=== PATIENT | male | born 1960 | race Caucasian/White ===

== ENCOUNTER → 2018-03-31 | Outpatient (CLI) | payer OTHER ==
[~2018-03-31] VITALS: Ht 182.9 cm; Wt 121.6 kg
[~2018-03-31] MED LIST: ALEVE220 MG PO; HYDROCODON-ACE1 EAC5 PO; LISINOPRIL-HCT1 EACH PO; NEURONTIN600 MG PO; NEXIUM40 MG PO; OXYCONTIN40 MG PO; XARELTO20 MG PO
--- NOTE | ~2018-03-31 | HPC ---
[facility] [address] [place] [address] PAIN MANAGEMENT CONSULTATION Name: CLIFTONANNA Moran Room #: REG [facility] M..#: [id number] Admission: 03/31/18 Attend Phys: Tyson Posada DO Discharge: Date of : 56 Report #: [id number] THIS REPORT FOR: //name// CC: [facility] physician/PCP [facility] Tyson Posada DATE OF SERVICE: 03/31/2018 HISTORY OF PRESENT ILLNESS: The patient is a 57-year-old gentleman seen in consultation at the request of the MA for evaluation of chronic pain concerns and consideration for treatment of same. The patient presents to the pain clinic today noting "whole body" pain, rating anywhere from 8-10 on a VAS. States specifically he has knee pain, axial back pain and peripheral neuropathic pain in his arms and legs. Describes burning and/or paresthesia in the upper and lower extremities. Notes pain in his knees, is rate limiting. He had total knee arthroplasties, right 2011, left 2012, with ongoing pain that continues to be problematic. He states he uses a cane to help with balance. He has followed up with his orthopedic surgeon at [facility], they do not feel he requires any revision of the total knee arthroplasties. The patient had prior back surgery, L5-S1 decompressive laminectomy and bipedicle fusion around 2006. He notes he had back and radicular pain that was significantly improved by that surgery. He had been habituated to high dose opiates, taking equivalent of 260 mg of morphine daily (OxyContin 40 mg t.i.d. and hydrocodone 10/325 eight a day). To the patient's credit, he has weaned off all the OxyContin over time and has decreased from 8 to 4 hydrocodone 10/325 a day. He notes he had a lot of cognitive dysfunction and feels that his head was significantly clear following weaning of these agents, but pain continues to be problematic. He also weaned off gabapentin 600 mg t.i.d. He did all of these weans slowly. Currently, he notes the pain is exacerbated any time he is up. Describes continuous crushing pain, again rates it anywhere from 8-10 on a VAS. He denies myelopathic symptoms. Again, primary pain is in the knees. REVIEW OF SYSTEMS: Complete review of systems was attached to chart and has gone over with the patient. He is . Smokes 1 pack of cigarettes a day, which he has for greater than 46 years. Denies any alcohol consumption Hypertension treated with lisinopril and hydrochlorothiazide. History of pulmonary embolism, was taken to [facility] in 2014, has been on Xarelto since. He has had significant gastroesophageal reflux, developed [facility] [address] [place] [address] PAIN MANAGEMENT CONSULTATION Name: ANNA LAZO Room #: REG CL Tali#: [id number] Admission: 03/31/18 Attend Phys: Tyson Posada DO Discharge: Date of : 56 Report #: [id number] [place] esophagitis and subsequent esophageal cancer. The latter was treated with sequential radiofrequency lesioning of the esophagus. Per the patient, the esophageal cancer is currently in remission. At [facility] [place], he was diagnosed with a genetic hypercoagulability disorder. There are no records of same. States he has gotten off his Xarelto for procedures in the past with no problems. Surgery was reviewed. Notes the prior back surgery in 2006, bilateral knee arthroplasties, 2011, 2012. Remaining review of systems is noncontributory. The patient worked as a welding machine operator [employer], ultimately retired in 2012. He is on SSD payments. Pain impact score is fairly high, averaging 65/70. PHYSICAL EXAMINATION: GENERAL: Reveals a 6 feet tall, 260-pound gentleman, elevated BMI. VITAL SIGNS: As noted on the EMR. NEUROLOGIC: Cranial nerves 2-12 are grossly intact. Pupils equal and reactive to light and accommodation. Extraocular muscles are intact. Upper extremity strength is generally preserved. Deep tendon reflexes are symmetric for the biceps, triceps, brachioradialis. NECK: Cervical range of motion is modestly limited. Thyroid is unremarkable. HEART: Regular and rhythmical without murmur. LUNGS: Clear to auscultation. ABDOMEN: Shows an endomorphic build. MUSCULOSKELETAL: Rises from chair using armrest. Has a markedly antalgic gait, unable to walk on his toes or heels, though this may be due to some balance issues. Lower extremity strength is diminished, but symmetric, 3-4/5 for all groups tested. Patellar reflex is not elicitable even without symmetric contraction. Achilles reflex is diminished. Straight leg raise is negative. Passive rotation of the hips and knees exacerbates pain. Curiously, he does have some ballottable edema in the right knee. He has well-healed surgical scars compatible with prior total knee arthroplasties. Skin integument is otherwise intact. DIAGNOSTIC STUDIES: Include a CT scan of the lumbar spine from 02/21/2018 does note the prior fusion at L5-S1 and laminectomy, has anterolisthesis at this level, also has anterolisthesis at L3-L4 and L4-L5. ASSESSMENT: Primary knee pain status post bilateral total knee arthroplasties, chronic pain syndrome requiring complex medication management, status post lumbar decompressive laminectomy with failed back syndrome, neuropathic pain requiring complex medication management in a gentleman with hypercoagulability disorder, on Xarelto. [facility] [address] [place] [address] PAIN MANAGEMENT CONSULTATION Name: ANNA LAZO Room #: REG Rox[facility] Cunningham.#: [id number] Admission: 03/31/18 Attend Phys: Tyson Posada DO Discharge: Date of : 56 Report #: [id number] RECOMMENDATION: I had a long discussion with the patient today about therapeutic options. Ultimately, his primary pain generator is his knees. Talked to him moving forward with bilateral genicular nerve block (superomedial, superolateral and inferomedial genicular nerves on both sides, total of 6 peripheral nerve blocks). If this affords transient relief, we will consider radiofrequency neurolysis of same. If, however, does not get adequate relief with genicular nerve block, may consider the patient a good candidate for spinal cord stimulator. High frequency stimulator may help with axial, back, lumbar, radicular, lower extremity peripheral neuropathy and primary knee pain. We will plan on moving forward with bilateral genicular nerve blocks (superomedial, superolateral and inferomedial genicular nerves, both left and right, total of 6 peripheral nerve blocks) at next visit. We can do this on Xarelto. We will have the patient hold Xarelto, however, in anticipation of radiofrequency neurolysis of these nerves the following day. I will do bilateral knee diagnostic blocks, but we will only do the RFL one side at a time; plan on doing the right side on 04/04. We consider doing the left side on 04/07 (Saturday). Thank you for allowing me to participate in the patient's care. We will keep you abreast of his progress. <ELECTRONICALLY SIGNED> By: Tyson Posada DO 04/03/18 0716 [id number] Tyson Posada DO /nt
[2018-03-31 12:35] VITALS: BP 163/95
== END ==
LOC: PAIN 06:45
DX: M54.5 Low back pain (principal); M79.2 Neuralgia and neuritis, unspecified; G89.4 Chronic pain syndrome; M25.561 Pain in right knee; M25.562 Pain in left knee; Z79.899 Other long term (current) drug therapy

== ENCOUNTER → 2018-04-10 | Outpatient (CLI) | payer OTHER ==
[~2018-04-10] VITALS: Ht 182.9 cm; Wt 120.3 kg
--- NOTE | ~2018-04-10 | HPC ---
[facility] [address] PAIN MANAGEMENT CONSULTATION Name: CLIFTONANNA Moran [id number] Admission: 04/10/18 Attend Phys: Tyson Posada DO Discharge: Date of : 56 Report #: [id number] THIS REPORT FOR: //name// CC: SAMRA physician/PCP Tyson Posada DATE OF SERVICE: 04/10/2018 The patient is a 57-year-old gentleman, prior seen in the pain clinic, diagnosed with bilateral knee pain status post bilateral total knee arthroplasties, chronic pain syndrome. We sought authorization for and received authorization to proceed with genicular nerve block, bilateral (3 specific nerve blocks each knee, superior medial, superior lateral and inferior medial genicular nerve). The patient notes his subjective pain in his knees continues to be problematic, rates it 8 on a VAS. The patient wished to proceed with diagnostic block today. PROCEDURE: Bilateral genicular nerve block (superior medial, superior lateral and inferior medial) with fluoroscopy. Six total nerve blocks. PROCEDURE NOTE: After written informed consent was obtained, the patient was taken to the fluoroscopy suite, placed in the supine position with bolster under the right knee. Attention was directed to the right knee initially, after wide surgical prep and drape, skin wheal with Xylocaine was raised. Three 22-gauge stylet needles were placed to contact the distal diaphysis of the distal femur, left and right, and proximal diaphysis of the tibia. AP images showed good needle placement. Lateral images showed needle tips mid shaft at all 3 points. Negative aspiration was accomplished. A 1 mL of a 50:50 mix of 0.5% preservative-free bupivacaine plus 1.5% preservative-free Xylocaine with 1:200,000 epinephrine was injected at each of the 3 sites. Needle was removed. The area was cleansed, Band-Aids were applied. The bolster was then transferred to the left knee and the procedure was repeated. After all six needles were removed. The patient was allowed to ambulate to recovery room, monitored for an appropriate period of time. The patient had dramatic improvement of pain, in fact noted pain was absent, being a 0/10 on discharge. We will have the patient continue to monitor subjective pain score hourly for the next several hours and call in to the nurses telephone line to record those scores. We will have him follow up next week to repeat the diagnostic block with Dr. Bennie Posada. If he again gets good transient relief, [place] [address] PAIN MANAGEMENT CONSULTATION Name: ANNA LAZO Room #: REG [facility]#: [id number] Admission: 04/10/18 Attend Phys: Tyson Posada DO Discharge: Date of : 56 Report #: [id number] forward with genicular nerve RFL. Fluoroscopy time was 25 seconds. <ELECTRONICALLY SIGNED> By: Tyson Posada DO 04/11/18 0829 [id number] Tyson Posada DO /reema
[2018-04-10 09:25] VITALS: BP 149/89
== END | disposition home or self-care (01) ==
LOC: PAIN 04-04 06:54
DX: M25.561 Pain in right knee (principal); M25.562 Pain in left knee; G89.4 Chronic pain syndrome; F17.200 Nicotine dependence, unspecified, uncomplicated; Z98.890 Other specified postprocedural states; Z96.653 Presence of artificial knee joint, bilateral; Z88.8 Allergy status to other drugs, medicaments and biological substances; Z79.899 Other long term (current) drug therapy